=== PATIENT | female | born 1990 | race American Indian/Alaskan Native ===

== ENCOUNTER 2016-08-17 10:33 | Emergency (ER) | payer BC ==
[2016-08-17 10:51] VITALS: BP 126/72
[2016-08-17 11:12] LABS: Basophils % (Auto) 0.9 % (0.0-1.8); Eosinophils % (Auto) 3.6 % (0.0-4.3); Hematocrit 39.5 % (30.3-42.9); Hemoglobin 13.2 gm/dl (10.1-14.3); Mean Corpuscular HGB Conc 34 % (30-34); Mean Corpuscular Hemoglobin 29 pg (28-32); Mean Corpuscular Volume 86 fl (79-97); Platelet Count 238 K/mm3 (140-440); Red Cell Distribution Width 14.3 % (13.2-15.2); White Blood Count 4.7 K/mm3 (4.5-11.0)
[2016-08-17 12:04] LABS: Bilirubin,Urine NEG (Negative); Blood,Urine MOD (Negative); Ketones,Urine NEG (Negative); Leukocyte Esterase,Urine NEG (Negative); Mucus,Urine 1+ /HPF; Nitrite,Urine NEG (Negative); RBC,Urine < 1.0 /HPF (0.0-6.0)
--- NOTE | 2016-08-19 16:47 | ED Elopement Review ---
ED Pt Elopement review - Results review Lab results: Laboratory Tests 08/17/16 08/17/16 08/17/16 10:53 10:53 Unknown WBC 4.7 RBC 4.60 Hgb 13.2 Hct 39.5 MCV 86 MCH 29 MCHC 34 RDW 14.3 Plt Count 238 Lymph % (Auto) 27.4 [place] % (Auto) 12.6 H Eos % (Auto) 3.6 Baso % (Auto) 0.9 Lymph # 1.3 [place] # 0.6 Eos # 0.2 Baso # 0.0 Seg Neutrophils % 55.5 Seg Neutrophils # 2.6 HCG, Quant 9826 H Urine Color Yellow Urine Turbidity Clear Urine pH 8.0 H Ur Specific [place] 1.018 Urine Protein 30 mg/dl Urine Glucose (UA) Neg Urine Ketones Neg Urine Blood Mod Urine Nitrite Neg Urine Bilirubin Neg Urine Urobilinogen 2.0 Ur Leukocyte Esterase Neg Urine WBC (Auto) 1.0 Urine RBC (Auto) < 1.0 U Epithel Cells (Auto) 1.0 Urine Mucus 1+ - Call Back decision Pt Call Back Decision: No action required
== END 2016-08-17 20:38 | disposition left against medical advice (07) ==
LOC: ED 10:33
DX: N93.9 Abnormal uterine and vaginal bleeding, unspecified (principal); Z53.21 Procedure and treatment not carried out due to patient leaving prior to being seen by health care provider
CPT/HCPCS: 36415; 81001; 84702; 85025

== ENCOUNTER 2017-04-14 10:51 | Outpatient (CLI) | payer BC, MEDICAID ==
[2017-04-14 11:27] VITALS: BP 121/69
== END 2017-04-14 12:06 | disposition home or self-care (01) ==
LOC: TRG 10:51
PROVIDERS: ATTEND Obstetrics & Gynecology
DX: O47.1 False labor at or after 37 completed weeks of gestation (principal); Z3A.39 39 weeks gestation of pregnancy
CPT/HCPCS: 59025

== ENCOUNTER 2017-04-20 07:18 | Inpatient (IN) | payer BC, MEDICAID ==
--- NOTE | 2017-04-20 08:19 | History and Physical Report ---
History of Present Illness Date of examination: 04/20/17 Date of admission: 04/20/17 08:00 History of present illness: 26 yo LMP EDC 04/17/17 @ 40.3 weeks gestation presented to triage in active labor. First trimester entry into care. Uncomplicated course. GBS negative. Past History Past Medical History: no pertinent history Past Surgical History: no surgical history Family/Genetic History: none Social history: no significant social history - Obstetrical History Expected Date of Delivery: 04/17/17 Actual Gestation: 40 Week(s) 3 Day(s) : 2 Para: 0 Number of Living Children: 0 Medications and Allergies Allergies Allergy/AdvReac Type Severity Reaction Status Date / Time No Known Allergies Allergy Verified 11/28/14 16:58 Home Medications Medication Instructions Recorded Confirmed Last Taken Type Acetaminophen/Codeine [Tylenol #3] 1 tab PO Q6H PRN #14 tab 11/28/14 Unknown Rx Cetirizine HCl [Allergy Relief] 10 mg PO DAILY #10 tablet 11/28/14 Unknown Rx Fluticasone [Flonase] 1 spray NS QDAY #1 bottle 11/28/14 Unknown Rx Ibuprofen [Motrin 800 MG tab] 800 mg PO Q8HR PRN #60 tablet 11/28/14 Unknown Rx Ondansetron [Zofran Odt] 4 mg PO Q6H PRN #14 tab.rapdis 11/28/14 Unknown Rx Ketorolac [Toradol] 10 mg PO Q6H PRN #20 tablet 01/10/16 Unknown Rx Review of Systems All systems: negative Genitourinary: deferred, normal appearance, contractions, no leakage of fluid - Vital Signs Vital signs: Vital Signs Temp Resp 97.8 F 18 04/20/17 07:33 04/20/17 07:33 Temp Pulse Resp BP Pulse Ox 97.8 F 67 18 119/67 04/20/17 07:33 04/20/17 08:03 04/20/17 07:33 04/20/17 08:03 - Physical Exam Breasts: Positive: deferred - Obstetrical FHR: category 2 FHR comments: minimal variability Uterine Contraction Monitor Mode: External Cervical Dilatation: 4 Cervical Effacement Percentage: 80 station: -2 Uterine Contraction Pattern: Regular Uterine Tone Measurement Phase: Resting Uterine Contraction Intensity: Moderate Results Result Diagrams: 04/20/17 08:15 All other labs normal. Assessment and Plan A: IUP at 40.3 weeks Active Labor P: Expectant Sukhdeep't
[2017-04-20] MEDS ORDERED: BRETHINE SUB-Q PRN (08:30)
[2017-04-20] MEDS ORDERED: SUBLIMAZE IV PRN (08:30)
[2017-04-20] MEDS ORDERED: ePHEDrine SULFATE IV PRN ×2 (08:30→11:57)
[2017-04-20] MEDS ORDERED: STADOL IV PRN (08:30)
[2017-04-20] MEDS ORDERED: BRETHINE IVP PRN (08:30)
[2017-04-20 08:40] LABS: Hematocrit 36.8 % (30.3-42.9); Hemoglobin 12.8 gm/dl (10.1-14.3); Mean Corpuscular HGB Conc 35 % (30-34); Mean Corpuscular Hemoglobin 31 pg (28-32); Mean Corpuscular Volume 89 fl (79-97); Platelet Count 184 K/mm3 (140-440); Red Blood Count 4.13 M/mm3 (3.65-5.03); Red Cell Distribution Width 13.4 % (13.2-15.2)
[2017-04-20] MEDS ORDERED: NUBAIN IV PRN (09:00)
[2017-04-20] MEDS ORDERED: PITOCin/NS 20 UNIT/1000ML DRIP 20 UNITS/1,000 ML BAG IV SCH (09:00)
[2017-04-20] MEDS ORDERED: MINERAL OIL PO PRN (09:00)
[2017-04-20] MEDS ORDERED: PITOCin/NS 30 UNIT/500ML 30 UNITS/500 ML BAG IV SCH ×2 (09:00)
[2017-04-20] MEDS ORDERED: XYLOCAINE 2% INFILTRATI ONE (10:00)
[2017-04-20] MEDS: LACTATED RINGERS 1,000 ML IV SCH ×2 (10:24→12:20)
[2017-04-20] MEDS ORDERED: fentaNYL-BUPIV 2 MCG/ML-0.125% 200 MCG/100 ML BAG EPIDURAL ONE (11:57)
[2017-04-20] MEDS ORDERED: NARCAN 2 MG/2 ML IV PRN (11:57)
--- NOTE | 2017-04-20 11:57 | Anesthesia Consultation ---
Anesthesia Consult and Med Hx Date of service: 04/20/17 - Airway Anesthetic Teeth Evaluation: Good ROM Head & Neck: Adequate Mental/Hyoid Distance: Adequate Mallampati Class: Class II Intubation Access Assessment: Probably Good - Pre-Operative Health Status ASA Pre-Surgery Classification: ASA3 Proposed Anesthetic Plan: Epidural, Spinal - Pulmonary Hx Asthma: No COPD: No Hx Pneumonia: No - Cardiovascular System Hx Hypertension: No - Central Nervous System Hx Seizures: No Hx Psychiatric Problems: No - Endocrine Hx Renal Disease: No Hx End Stage Renal Disease: No Hx Hypothyroidism: No Hx Hyperthyroidism: No - Hematic Hx Anemia: Yes Hx Sickle Cell Disease: No - Other Systems Hx Alcohol Use: No Hx Obesity: Yes (BMI 41.9)
[2017-04-20] MEDS ORDERED: fentaNYL-BUPIV 2 MCG/ML-0.125% 200 MCG/100 ML BAG EPIDURAL SCH (12:00)
[2017-04-20] MEDS ORDERED: REGLAN ONE (12:59)
[2017-04-20] MEDS ORDERED: ANCEF/STERILE WATER 2 GM/20 ML 2 GM/20 ML SYRINGE IV ONE (12:59)
[2017-04-20] MEDS ORDERED: BICITRA ONE (12:59)
--- NOTE | 2017-04-20 13:42 | Procedure Note ---
OB Delivery Note - Delivery Date of Delivery: 04/20/17 (7-1 oz male @1309) Surgeon: ROXANA BERGMAN (Dr. Deena Gray) Estimated blood loss: 300cc - Vaginal Delivery presentation: vertex Delivery position: OA Intrapartum events: none, decreased FHT variability, mult.variable deceleratio Delivery induction: none Delivery augmentation: rupture of membranes Delivery monitor: external FHT, external uterine, internal FHT Route of delivery: Delivery placenta: spontaneous Delivery cord: 3 umbilical vessels Episiotomy: none Delivery laceration: 1st degree (vaginal, repaired with 3.[address] under epidural anethesia) Delivery repair: vicryl Anesthesia: epidural - Infant A at 1 minute: 8 at 5 minutes: 9 Infant Gender: Male (Progressed rapidly to C/C/, decels to 70's. [address] MD at . Prepared for primary C/S. Attempted to push with contraction. Vtx descended to +2, vacuum applied. One pull no pop offs, for delivery of male . Spont. Lusty cry. Infant dried and placed skin to skin. Apgars as noted. Cord blood collected. Spont. placenta. Pitocin infusing. Bleeding small. FF 3 below U, ML. Mom and stable.)
[2017-04-20] MEDS ORDERED: MILK OF MAGNESIA PO PRN (13:46)
[2017-04-20] MEDS ORDERED: NORCO 5/325 PO PRN (13:46)
[2017-04-20] MEDS ORDERED: TUCKS PAD TP PRN (13:46)
[2017-04-20] MEDS ORDERED: LANSINOH TP PRN (13:46)
[2017-04-20] MEDS ORDERED: PHENERGAN PR PRN (13:46)
[2017-04-20] MEDS ORDERED: BENADRYL PO PRN (13:46)
[2017-04-20] MEDS ORDERED: DULCOLAX PR PRN (13:46)
[2017-04-20] MEDS ORDERED: PHENERGAN PO PRN (13:46)
[2017-04-20] MEDS ORDERED: TYLENOL PO PRN (13:46)
[2017-04-20] MEDS ORDERED: SODIUM CHLORIDE FLUSH SYRINGE 10 ML IV SCH (14:00)
[2017-04-20] MEDS: MOTRIN PO SCH ×2 (18:00→23:41)
[2017-04-21 01:44] LABS: Hematocrit 31.4 % (30.3-42.9); Hemoglobin 10.8 gm/dl (10.1-14.3)
[2017-04-21] MEDS: MOTRIN PO SCH ×4 (05:20→23:19)
[2017-04-21] MEDS ORDERED: BOOSTRIX IM ONE (06:00)
--- NOTE | 2017-04-21 08:36 | Progress Note ---
Assessment and Plan PPD 1 s/p vavd 1st degree inspected sutures present h/h 12.8-10.8 O+ declines cotnrol breast and bottle feeding consider d/c home tomorrow Subjective - Subjective Date of service: 04/21/17 Principal diagnosis: s/p vavd Patient reports: appetite normal, voiding normally, pain well controlled, flatus , ambulating normally : doing well Objective - Vital Signs Latest vital signs: Vital Signs Temp Pulse Resp BP BP Pulse Ox 04/21/17 02:21 98.5 F 65 18 101/56 98 04/20/17 20:50 98.7 F 20 114/63 04/20/17 16:00 98.2 F 81 18 92/50 99 04/20/17 14:31 68 106/56 04/20/17 14:15 81 110/56 04/20/17 14:01 81 114/58 04/20/17 13:31 87 126/58 04/20/17 13:01 113 H 174/74 04/20/17 13:00 120 H 100 04/20/17 12:55 75 100 04/20/17 12:50 76 100 04/20/17 12:47 62 112/57 04/20/17 12:45 69 99 04/20/17 12:40 71 100 04/20/17 12:35 74 100 04/20/17 12:32 72 121/64 04/20/17 12:31 67 121/60 04/20/17 12:30 59 L 100 04/20/17 12:25 71 133/82 100 04/20/17 12:15 18 115/75 04/20/17 11:51 74 115/71 04/20/17 11:41 74 135/67 04/20/17 10:23 18 04/20/17 09:49 86 94 04/20/17 09:48 82 100 04/20/17 09:43 71 99 04/20/17 09:42 77 92 04/20/17 09:38 70 100 04/20/17 09:33 63 100 04/20/17 09:28 59 L 115/62 100 04/20/17 08:48 98.0 F 61 16 115/62 100 Intake and Output 04/20/17 04/21/17 04/21/17 23:59 07:59 15:59 Intake Total 360 Balance 360 Intake: Oral 360 Other: Total, Intake Amount 360 # Voids Void 2 - Exam Breasts: Present: normal Cardiovascular: Present: Regular rate, Normal S1 Lungs: Present: Clear to auscultation, Normal air movement Abdomen: Present: normal appearance, soft, normal bowel sounds. Absent: distention, tenderness, guarding Vulva: both: normal Uterus: Present: normal, firm, fundal height below umbilicus. Absent: bogginess , tenderness Extremities: Present: normal Deep Tendon Reflex Grade: Normal +2 Incision: Present: normal - Labs Labs: Abnormal lab results 04/20/17 Range/Units 08:15 MCHC 35 H (30-34) %
--- NOTE | 2017-04-21 09:49 | Progress Note ---
Subjective Date of service: 04/21/17 Principal diagnosis: s/p vavd Interval history: 1st day after vaginal delivery Patient is comfortable. No residual neurological deficit. No anesthesia complications Objective - Constitutional Vitals: Vital Signs - 12hr 04/21/17 02:21 Temperature 98.5 F Pulse Rate 65 Respiratory 18 Rate Blood Pressure 101/56 O2 Sat by Pulse 98 Oximetry - Labs CBC & Chem 7: 04/21/17 01:18
[2017-04-21] MEDS ORDERED: PRENATAL VITAMIN PO SCH (10:00)
[2017-04-21] MEDS ORDERED: M-M-R II VACCINE SUB-Q ONE (13:46)
[2017-04-22] MEDS: MOTRIN PO SCH (05:19)
--- NOTE | 2017-04-22 07:03 | Progress Note ---
Assessment and Plan PPD 2 s/p vavd 1st degree inspected sutures present h/h 12.8-10.8 O+ declines cotnrol breast and bottle feeding d/c home with f/u in 4 weeks Subjective - Subjective Date of service: 04/22/17 Principal diagnosis: s/p vavd Patient reports: appetite normal, voiding normally, pain well controlled, flatus , ambulating normally : doing well Objective - Vital Signs Latest vital signs: Vital Signs Temp Pulse Resp BP Pulse Ox 04/21/17 23:55 98.2 F 82 18 109/63 98 04/21/17 16:52 97.6 F 77 18 106/54 04/21/17 12:00 97.8 F 74 18 114/60 04/21/17 08:30 98 F 70 16 90/55 Intake and Output 04/21/17 04/21/17 04/22/17 15:59 23:59 07:59 Intake Total 800 1205 Balance 800 1205 Intake: Oral 800 1205 Other: Total, Intake Amount 800 240 # Voids Void 3 1 - Exam Breasts: Present: normal Cardiovascular: Present: Regular rate, Normal S1 Lungs: Present: Clear to auscultation, Normal air movement Abdomen: Present: normal appearance, soft, normal bowel sounds. Absent: distention, tenderness, guarding Vulva: both: normal Uterus: Present: normal, firm, fundal height below umbilicus. Absent: bogginess , tenderness Extremities: Present: normal Deep Tendon Reflex Grade: Normal +2 Incision: Present: normal
--- NOTE | 2017-04-22 07:04 | Discharge Summary ---
Providers - Providers Date of Admission: 04/20/17 08:00 Date of discharge: 04/22/17 Attending physician: HEATHER VELEZ Primary care physician: HEATHER VELEZ Hospitalization Reason for admission: active labor Delivery: vacuum extraction Episiotomy: none Laceration: 1st degree Incision: normal, dry, intact Other procedures: none complications: none [place] baby: male Condition at discharge: Good Disposition: DC-01 TO HOME OR SELFCARE Plan - Provider Discharge Summary Activity: routine, no sex for 6 weeks, no strenuous exercise Diet: routine Instructions: routine Additional instructions: [] Smoking cessation referral if applicable(refer to patient education folder for contact #) [] Refer to [facility] Booklet Call your doctor immediately for: * Fever > 100.5 * Heavy vaginal bleeding ( >1 pad per hour) * Severe persistent headache * Shortness of breath * Reddened, hot, painful area to leg or breast * Drainage or odor from incision. * Keep incision clean and dry at all times and follow doctor's instructions regarding bathing/showering - Follow up plan Follow up: HEATHER VELEZ MD [Primary Care Provider] - 05/19/17
[2017-04-22 14:21] VITALS: BP 113/70
== END 2017-04-22 14:43 | disposition home or self-care (01) | DRG 775 ==
LOC: TRG 07:18 → LD 08:00 → OB 15:44
PROVIDERS: ADMIT Obstetrics & Gynecology; ATTEND Obstetrics & Gynecology
PROC: 10D07Z6 Extraction of Products of Conception, Vacuum, Via Natural or Artificial Opening (ICD-10-PCS; principal; 2017-04-20)
PROC: 0HQ9XZZ Repair Perineum Skin, External Approach (ICD-10-PCS; 2017-04-20)
PROC: 3E0R3BZ Introduction of Anesthetic Agent into Spinal Canal, Percutaneous Approach (ICD-10-PCS; 2017-04-20)
PROC: 00HU33Z Insertion of Infusion Device into Spinal Canal, Percutaneous Approach (ICD-10-PCS; 2017-04-20)
PROC: 3E0234Z Introduction of Serum, Toxoid and Vaccine into Muscle, Percutaneous Approach (ICD-10-PCS; 2017-04-21)
DX: O76 Abnormality in fetal heart rate and rhythm complicating labor and delivery (principal); Z68.41 Body mass index [BMI] 40.0-44.9, adult; Z3A.40 40 weeks gestation of pregnancy; Z37.0 Single live birth; Z23 Encounter for immunization; O99.02 Anemia complicating childbirth; D64.9 Anemia, unspecified; O99.214 Obesity complicating childbirth; E66.9 Obesity, unspecified; O70.0 First degree perineal laceration during delivery
CPT/HCPCS: 36415; 85014; 85018; 85027; 86592; 86850; 86900; 86901; 99211; G0463; J0595; J0690; J2300; J2590; J2765; J7120

== ENCOUNTER 2020-04-10 11:43 | Emergency (ER) | payer BC, MEDICAID ==
[2020-04-10 11:48] VITALS: BP 122/64
[2020-04-10] MEDS ORDERED: IBUPROFEN 600 MG TAB PO ONE ×2 (12:08→14:23)
--- NOTE | 2020-04-10 12:10 | Emergency Department Report ---
ED Upper Extremity Inj HPI - General Chief Complaint: Extremity Injury, Upper Stated Complaint: BOTH HANDS INJURY Time Seen by Provider: 04/10/20 12:03 Source: patient Mode of arrival: Ambulatory Limitations: No Limitations - History of Present Illness Initial Comments: Patient is a 29-year-old female presents emergency room with complaints of bilateral hand injury that occurred around 11 AM this morning. She reports that she was trying to get a pole from underneath a pallet that had magazines on top of it at work. She states that the pallet fell directly onto both her hands. She has associated hand pain swelling, bruising. She is able to move the digits. She denies any numbness or weakness. She denies ever injuring her hands in the past.. She states her last menstrual cycle was a few days ago. She is unsure of her tetanus immunization but upon chart review her last tetanus immunization was in 2018 so at her Tdap is up-to-date. She states that she is also had left upper eyelid swelling or redness for 3 days. She states that she does get frequent styes. She denies getting anything into the eye. She does have false lashes on. She denies any vision changes or drainage. - Related Data Previous Rx's Medication Instructions Recorded Last Taken Type Acetaminophen/Codeine [Tylenol #3] 1 tab PO Q6H PRN #14 tab 11/28/14 Unknown Rx Cetirizine HCl [Allergy Relief] 10 mg PO DAILY #10 tablet 11/28/14 Unknown Rx Fluticasone [Flonase] 1 spray NS QDAY #1 bottle 11/28/14 Unknown Rx Ibuprofen [Motrin 800 MG tab] 800 mg PO Q8HR PRN #60 tablet 11/28/14 Unknown Rx Ondansetron [Zofran Odt] 4 mg PO Q6H PRN #14 tab.rapdis 11/28/14 Unknown Rx Ketorolac [Toradol] 10 mg PO Q6H PRN #20 tablet 01/10/16 Unknown Rx Ibuprofen [Motrin] 600 mg PO Q8H PRN #30 tablet 04/22/17 Unknown Rx oxyCODONE /ACETAMINOPHEN [Percocet 1 tab PO Q6HR PRN #30 tablet 04/22/17 Unknown Rx 5/325] Erythromycin [Erythromycin Ophth 1 applicatio OS QID 7 Days #1 tube 04/10/20 Unknown Rx Oint] Naproxen [EC-Naprosyn] 500 mg PO BID PRN #14 tablet. 04/10/20 Unknown Rx Allergies Allergy/AdvReac Type Severity Reaction Status Date / Time No Known Allergies Allergy Verified 11/28/14 16:58 ED Review of Systems ROS: Stated complaint: BOTH HANDS INJURY Other details as noted in HPI Comment: All other systems reviewed and negative ED Past Medical Hx - Past Medical History Previous Medical History?: Yes Hx Hypertension: No Hx Congestive Heart Failure: No Hx Diabetes: No Hx Deep Vein Thrombosis: No Hx Renal Disease: No Hx Sickle Cell Disease: No Hx Seizures: No Hx Asthma: No Hx COPD: No Hx HIV: No Additional medical history: Miscarriage - Surgical History Past Surgical History?: No - Social History Smoking Status: Never Smoker - Medications Home Medications: Home Medications Medication Instructions Recorded Confirmed Last Taken Type Acetaminophen/Codeine [Tylenol #3] 1 tab PO Q6H PRN #14 tab 11/28/14 04/20/17 Unknown Rx Cetirizine HCl [Allergy Relief] 10 mg PO DAILY #10 tablet 11/28/14 04/20/17 Unknown Rx Fluticasone [Flonase] 1 spray NS QDAY #1 bottle 11/28/14 04/20/17 Unknown Rx Ibuprofen [Motrin 800 MG tab] 800 mg PO Q8HR PRN #60 tablet 11/28/14 04/20/17 Unknown Rx Ondansetron [Zofran Odt] 4 mg PO Q6H PRN #14 tab.rapdis 11/28/14 04/20/17 Unknown Rx Ketorolac [Toradol] 10 mg PO Q6H PRN #20 tablet 01/10/16 04/20/17 Unknown Rx Ibuprofen [Motrin] 600 mg PO Q8H PRN #30 tablet 04/22/17 Unknown Rx oxyCODONE /ACETAMINOPHEN [Percocet 1 tab PO Q6HR PRN #30 tablet 04/22/17 Unknown Rx 5/325] Erythromycin [Erythromycin Ophth 1 applicatio OS QID 7 Days #1 tube 04/10/20 Unknown Rx Oint] Naproxen [EC-Naprosyn] 500 mg PO BID PRN #14 tablet. 04/10/20 Unknown Rx ED Physical Exam - General Limitations: No Limitations General appearance: alert, in no apparent distress - Head Head exam: Present: atraumatic, normocephalic - Eye Eye exam: Present: PERRL, EOMI, other (right upper eyelid erythema and mild edema, no pain with EOMI) - ENT ENT exam: Present: mucous membranes moist - Respiratory Respiratory exam: Absent: respiratory distress, accessory muscle use - Extremities Exam Extremities exam: Present: other (ttp and edema present to the dorsal hands bilaterally, there is ecchymosis present to the dorsal hands, no ttp of the wrists or forearms bilaterally, FROM of the BUE with discomfort upon movement of the hands, no snuffbox ttp bilaterally, neurovascularly intact, small 1 cm abrasion right dorsal hand) - Neurological Exam Neurological exam: Present: alert, oriented X3 - Psychiatric Psychiatric exam: Present: normal affect, normal mood - Skin Skin exam: Present: warm, dry ED Course Vital Signs 04/10/20 11:45 Temperature 98.0 F Pulse Rate 86 Respiratory 16 Rate Blood Pressure 122/64 [Right] O2 Sat by Pulse 98 Oximetry ED Medical Decision Making - Radiology Data Radiology results: report reviewed, image reviewed X-ray bilateral hands no acute process - Medical Decision Making Patient is a 29-year-old female presents emergency room with complaints of bilateral hand injury that occurred around 11 AM this morning. She reports that she was trying to get a pole from underneath a pallet that had magazines on top of it at work. She states that the pallet fell directly onto both her hands. She has associated hand pain swelling, bruising. She is able to move the digits. She denies any numbness or weakness. She denies ever injuring her hands in the past.. She states her last menstrual cycle was a few days ago. She is unsure of her tetanus immunization but upon chart review her last tetanus immunization was in 2018 so at her Tdap is up-to-date. She states that she is also had left upper eyelid swelling or redness for 3 days. She states that she does get frequent styes. She denies getting anything into the eye. She does have false lashes on. She denies any vision changes or drainage. VSS. on exam:ttp and edema present to the dorsal hands bilaterally, there is ecchymosis present to the dorsal hands, no ttp of the wrists or forearms bilaterally, FROM of the BUE with discomfort upon movement of the hands, no snuffbox ttp bilaterally, neurovascularly intact, small 1 cm abrasion right dorsal hand, right upper eyelid erythema and mild edema, no pain with EOMI. eye exam appears consistent with internal hordeolum. X-ray bilateral hands no acute process. Discussed all findings with patient and answered questions. Patient given ibuprofen while in the emergency department as she did drive. Wound care performed by nurse and Patrick bandages placed on the bilateral hands by nurse and patient remained neurovascularly intact. Patient given prescription for naproxen and erythromycin ophthalmic ointment. Advised patient Please use medication as prescribed. May use ice pack for 15 minutes at a time, rest, elevation of the arms. Follow-up with your primary care doctor. Follow-up with orthopedic doctor. Please keep abrasion clean, dry, covered. Wash with antibacterial soap and water twice a day and pat dry. Return to emergency room for any new or worsening symptoms. please remove false lashes and use warm compresses to the upper eyelid 3-5 times a day. Critical care attestation.: If time is entered above; I have spent that time in minutes in the direct care of this critically ill patient, excluding procedure time. ED Disposition Clinical Impression: Hand crush injury Qualifiers: Encounter type: initial encounter Laterality: unspecified laterality Qualified Code(s): S67.20XA - Crushing injury of unspecified hand, initial encounter Abrasion of right hand Qualifiers: Encounter type: initial encounter Qualified Code(s): S60.511A - Abrasion of right hand, initial encounter Internal hordeolum of left eye Qualifiers: Eyelid: upper Qualified Code(s): H00.024 - Hordeolum internum left upper eyelid Disposition: DC-01 TO HOME OR SELFCARE Is pt being admited?: No Does the pt Need Aspirin: No Condition: Stable Instructions: Crush Injury of the Hand, Wound Care, Adult Additional Instructions: Please use medication as prescribed. May use ice pack for 15 minutes at a time, rest, elevation of the arms. Follow-up with your primary care doctor. Follow- up with orthopedic doctor. Please keep abrasion clean, dry, covered. Wash with antibacterial soap and water twice a day and pat dry. Return to emergency room for any new or worsening symptoms. please remove false lashes and use warm compresses to the upper eyelid 3-5 times a day. Prescriptions: Naproxen [EC-Naprosyn] 500 mg PO BID PRN #14 tablet. PRN Reason: pain Erythromycin [Erythromycin Ophth Oint] 1 applicatio OS QID 7 Days #1 tube Referrals: PRIMARY CARE, [Primary Care Provider] - 2-3 Days ELIZABET RODRIGUEZ MD [Staff Physician] - 2-3 Days [facility] [Provider Group] - 2-3 Days Time of Disposition: 13:05 Print Language: IRANIAN
--- NOTE | 2020-04-10 12:57 | XRay Report ---
BILATERAL HAND 3 VIEW(S) INDICATION / CLINICAL INFORMATION: pallet fell onto both hands COMPARISON: None available. FINDINGS: BONES / JOINT(S): No acute fracture or subluxation. No significant arthritis. SOFT TISSUES: No significant abnormality. ADDITIONAL FINDINGS: None. Signer Name: Bautista Valencia MD Signed: 04/10/2020 12:53 PM Workstation Name: [id number]
[2020-04-10] MEDS ORDERED: NEOMY 3.5 MG/BACIT 400 UNITS/POLY B 5000 UNITS/GM OINT PACKET TP ONE (13:06)
== END 2020-04-10 14:27 | disposition home or self-care (01) ==
LOC: ED 11:43
DX: S67.20XA Crushing injury of unspecified hand, initial encounter (principal); S60.511A Abrasion of right hand, initial encounter; H00.024 Hordeolum internum left upper eyelid; Z79.899 Other long term (current) drug therapy; W19.XXXA Unspecified fall, initial encounter; Y93.89 Activity, other specified; Y92.89 Other specified places as the place of occurrence of the external cause; Y99.8 Other external cause status
CPT/HCPCS: 99283

== ENCOUNTER 2020-09-30 21:01 | Emergency (ER) | payer SELFPAY | END 2020-09-30 21:06 | disposition left against medical advice (07) | LOC: ED 21:01 | DX: R51.9 Headache, unspecified (principal); M79.641 Pain in right hand; M79.642 Pain in left hand; Z53.21 Procedure and treatment not carried out due to patient leaving prior to being seen by health care provider ==